=== PATIENT | female | born 1960 | race Two or more races ===

== ENCOUNTER 2021-05-23 10:47 | Emergency (ER) | payer MEDICAID, OTHER ==
[~2021-05-23] VITALS: Ht 165.1 cm; Wt 74.8 kg
[2021-05-23 10:53] VITALS: BP 122/64
== END 2021-05-23 12:22 | disposition home or self-care (01) ==
LOC: ER 10:47
DX: S93.402A Sprain of unspecified ligament of left ankle, initial encounter (principal); Z88.0 Allergy status to penicillin; W18.39XA Other fall on same level, initial encounter; Y93.89 Activity, other specified; Y92.89 Other specified places as the place of occurrence of the external cause; Y99.8 Other external cause status
CPT/HCPCS: 73610

== ENCOUNTER 2022-01-17 21:00 | Emergency (ER) | payer MEDICAID ==
[~2022-01-17] VITALS: Ht 165.1 cm; Wt 77.1 kg
[2022-01-17] MEDS ORDERED: ceFAZolin 1GM/50ML 50 ML IV ONE (21:30)
[2022-01-17] MEDS ORDERED: TETANUS-DIPTH-ACEL PERTUSSIS 0.5ML SYR Tdap IM ONE (21:30)
[2022-01-17] MEDS ORDERED: SODIUM CHLORIDE 0.9% 1,000 ML IV ONE (21:30)
[2022-01-17] MEDS ORDERED: HYDROmorphone HCL 2 MG/ML VL/or syr IV ONE (21:30)
[2022-01-17] MEDS ORDERED: IOHEXOL 350 MG/ML 100ML IJ ONE (21:34)
[2022-01-17] MEDS ORDERED: LORazepam 2MG/ML-1ML VIAL IV ONE (22:30)
[2022-01-17] MEDS ORDERED: diphenhdrAMINE HCL 50 MG/1 ML VL IV ONE (22:30)
[2022-01-17] MEDS ORDERED: HALOPERIDOL LACTATE 5 MG/ML INJ VIAL IM ONE (22:30)
[2022-01-17 22:34] LABS: Basophils # (auto) 0.1 10 ^3/uL (0-0.2); Basophils % (auto) 0.6 % (0.0-2.0); Eosinophils # (auto) 0.2 10 ^3/uL (0-0.8); Hematocrit 38.5 % (36.0-46.0); Hemoglobin 13.2 g/dL (12.2-16.2); Lymphocytes % (auto) 16.5 % (10.0-50.0); Mean Corpuscular Hemoglobin 29.4 pg (28.0-32.0); Mean Corpuscular Hgb Conc. 34.2 g/dL (32.0-36.0); Mean Corpuscular Volume 85.8 fL (80.0-100.0); Monocytes # (auto) 0.6 10 ^3/uL (0-1.3); Monocytes % (auto) 5.4 % (0.0-12.0); Neutrophils # (auto) 9.1 10 ^3/uL (1.6-8.6); Neutrophils % (auto) 75.5 % (37.0-80.0); Nucleated Red Blood Cells % 0.2 %; Red Blood Cells 4.49 10^6/uL (4.0-5.20); Red Cell Distribution Width 13.4 % (11.8-14.3); White Blood Cell 12.1 10^3/uL (4.4-10.8)
[2022-01-17 22:50] LABS: INR 0.99 (0.9-1.15); Partial Thromboplastin Time 27.3 sec (23.6-33.0)
[2022-01-17 22:51] LABS: Albumin 3.3 g/dL (3.4-5.0); Anion Gap 7 (5-15); BUN/Creatinine Ratio 9.2; Blood Alcohol < 3.0 mg/dL (0-5); Blood Urea Nitrogen 12 mg/dL (7-18); Calcium 8.4 mg/dL (8.5-10.1); Carbon Dioxide 29 mmol/L (21-32); Chloride 102 mmol/L (98-107); GFR African American 54 mL/min; GFR Non-African American 44 mL/min; Glucose 128 mg/dL (74-106); Potassium 3.9 mmol/L (3.5-5.1); Sodium 138 mmol/L (136-145)
[2022-01-17 22:55] LABS: Alanine Aminotransferase 31 U/L (13-56); Alkaline Phosphatase 117 U/L (45-117); Aspartate Aminotransferase 25 U/L (15-37); Bilirubin, Total 0.2 mg/dL (0.2-1.0); Total Protein 6.8 g/dL (6.4-8.2)
[2022-01-17 22:56] LABS: Lactic Acid w/Reflex 2.1 mmol/L (0.4-2.0)
[2022-01-17] MEDS ORDERED: PROPOFOL 10 MG/ML 20 ML IV ONE (23:45)
[2022-01-17] MEDS ORDERED: PROPOFOL 100 ML IV ONE (23:58)
[2022-01-18 01:47] LABS: Urine Bacteria NONE SEEN /hpf (None Seen); Urine Blood 1+ /uL (Negative); Urine Specific Gravity > 1.050 (1.001-1.035); Urine WBC 1 /hpf (0 - 5)
[2022-01-18 01:53] LABS: Alcohol, Urine < 3.0 mg/dL (0-10); Amphetamine Screen, Urine POSITIVE (NEGATIVE); Benzodiazephine Screen, Urine NEGATIVE (NEGATIVE); Cannabinoid Screen, Urine NEGATIVE (NEGATIVE); Cocaine Screen, Urine NEGATIVE (NEGATIVE); Opiate Scree,Urine NEGATIVE (NEGATIVE); Phencyclidine Screen, Urine NEGATIVE (NEGATIVE)
[2022-01-18 02:01] LABS: Barbiturate Scree,Urine NEGATIVE (NEGATIVE)
[2022-01-18 03:05] VITALS: BP 134/81
== END 2022-01-18 03:14 | disposition home or self-care (01) ==
LOC: ER 21:00 → EDBD 21:00 → ER 01-18 03:14
DX: S43.005A Unspecified dislocation of left shoulder joint, initial encounter (principal); S42.92XA Fracture of left shoulder girdle, part unspecified, initial encounter for closed fracture; S01.81XA Laceration without foreign body of other part of head, initial encounter; Z88.0 Allergy status to penicillin; Z20.822 Contact with and (suspected) exposure to COVID-19; W19.XXXA Unspecified fall, initial encounter; Y93.89 Activity, other specified; Y92.89 Other specified places as the place of occurrence of the external cause; Y99.8 Other external cause status
CPT/HCPCS: 12015; 23650; 36415; 70450; 71260; 72125; 73020; 73030; 73060; 73080; 73110; 74177; 80053; 80307; 80320; 81001; 83605; 84484; 85025; 85610; 85730; 86850; 86900; 86901; 87426; 87804; 90471; 90715; 93005; 96365; 96375; 99152; 99285; J0690; J1170; J1200; J2001; J2060; J2704; Q9967

== ENCOUNTER 2022-10-03 12:02 | Emergency (ER) | payer MEDICAID, OTHER ==
[~2022-10-03] VITALS: Ht 165.1 cm; Wt 63.0 kg
[2022-10-03 12:17] VITALS: BP 121/67
[2022-10-03] MEDS ORDERED: SODIUM CHLORIDE 0.9% 1,000 ML IV ONE (12:30)
[2022-10-03 12:53] LABS: Basophils # (auto) 0 10 ^3/uL (0-0.2); Basophils % (auto) 0.5 % (0.0-2.0); Eosinophils # (auto) 0.3 10 ^3/uL (0-0.8); Eosinophils % (auto) 3.8 % (0.0-7.0); Hematocrit 48.4 % (36.0-46.0); Hemoglobin 16.1 g/dL (12.2-16.2); Lymphocytes # (auto) 2.2 10 ^3/uL (0.4-5.4); Lymphocytes % (auto) 25.2 % (10.0-50.0); Mean Corpuscular Hemoglobin 29.4 pg (28.0-32.0); Mean Corpuscular Hgb Conc. 33.4 g/dL (32.0-36.0); Mean Corpuscular Volume 88.2 fL (80.0-100.0); Monocytes # (auto) 0.7 10 ^3/uL (0-1.3); Monocytes % (auto) 8.2 % (0.0-12.0); Neutrophils # (auto) 5.5 10 ^3/uL (1.6-8.6); Neutrophils % (auto) 62.3 % (37.0-80.0); Nucleated Red Blood Cells % 0.1 %; Red Blood Cells 5.49 10^6/uL (4.0-5.20); Red Cell Distribution Width 13.6 % (11.8-14.3); White Blood Cell 8.8 10^3/uL (4.4-10.8)
[2022-10-03 14:20] LABS: Anion Gap 8 (5-15); Carbon Dioxide 26 mmol/L (21-32); Chloride 104 mmol/L (98-107); Potassium 4.6 mmol/L (3.5-5.1); Sodium 138 mmol/L (136-145)
[2022-10-03 14:21] LABS: Alanine Aminotransferase 29 U/L (13-56); Albumin 4.2 g/dL (3.4-5.0); Alkaline Phosphatase 131 U/L (45-117); Aspartate Aminotransferase 28 U/L (15-37); BUN/Creatinine Ratio 11.6; Bilirubin, Total 0.4 mg/dL (0.2-1.0); Blood Urea Nitrogen 11 mg/dL (7-18); Calcium 9.5 mg/dL (8.5-10.1); GFR African American 77 mL/min; GFR Non-African American 64 mL/min; Glucose 91 mg/dL (74-106); Total Protein 8.1 g/dL (6.4-8.2)
[2022-10-03 14:30] LABS: Lipase 75 U/L (73-393); Magnesium 2.2 mg/dL (1.6-2.6)
== END 2022-10-03 13:15 | disposition left against medical advice (07) ==
LOC: EDBD 12:02 → ER 12:02
DX: R07.89 Other chest pain (principal); S93.402D Sprain of unspecified ligament of left ankle, subsequent encounter; F31.9 Bipolar disorder, unspecified; F41.9 Anxiety disorder, unspecified; F17.210 Nicotine dependence, cigarettes, uncomplicated; I10 Essential (primary) hypertension; F15.10 Other stimulant abuse, uncomplicated; Z98.51 Tubal ligation status; Z88.0 Allergy status to penicillin; X58.XXXD Exposure to other specified factors, subsequent encounter
CPT/HCPCS: 36415; 80053; 83690; 83735; 84484; 85025; 93005

== ENCOUNTER → 2023-11-04 | Outpatient (CLI) | payer OTHER, MEDICARE ==
[2023-11-04 15:16] LABS: Alanine Aminotransferase 13 U/L (7-40); Albumin 4.4 g/dL (3.2-4.8); Alkaline Phosphatase 128 U/L (46-116); Anion Gap 3 (5-15); Aspartate Aminotransferase 19 U/L (13-40); BUN/Creatinine Ratio 14.3 (10.0-20.0); Blood Urea Nitrogen 11 mg/dL (9-23); Calcium 9.9 mg/dL (8.5-10.1); Carbon Dioxide 30 mmol/L (20-30); Chloride 106 mmol/L (98-107); Cholesterol 194 mg/dL (< 200); Glucose 93 mg/dL (74-106); HDL Cholesterol 44 mg/dL (40-59); LDL Cholesterol 129 mg/dL (< 100); Sodium 139 mmol/L (136-145); Triglycerides 122 mg/dL (< 150)
[2023-11-04 15:17] LABS: Bilirubin, Total 0.3 mg/dL (0.2-1.0); Total Protein 7.3 g/dL (5.7-8.2)
== END | disposition home or self-care (01) ==
LOC: LAB 14:33
PROVIDERS: ATTEND Student in an Organized Health Care Education/Training Program
DX: R73.9 Hyperglycemia, unspecified (principal); R03.0 Elevated blood-pressure reading, without diagnosis of hypertension; F41.9 Anxiety disorder, unspecified
CPT/HCPCS: 36415; 80053; 80061; 83036; 84443

== ENCOUNTER 2024-01-08 10:55 | Emergency (ER) | payer MEDICARE, OTHER ==
[~2024-01-08] VITALS: Ht 165.1 cm; Wt 57.6 kg
[2024-01-08 11:11] VITALS: BP 133/75; RESP 15; O2SAT 100
[2024-01-08 11:25] VITALS: PULSE 82
[2024-01-08] MEDS: GABAPENTIN 300 MG CAP PO ONE (11:44)
[2024-01-08 11:59] LABS: Basophils # (auto) 0 10 ^3/uL (0-0.2); Basophils % (auto) 0.6 % (0.0-2.0); Eosinophils # (auto) 0.2 10 ^3/uL (0-0.8); Eosinophils % (auto) 3.2 % (0.0-7.0); Hematocrit 41.1 % (36.0-46.0); Hemoglobin 13.6 g/dL (12.2-16.2); Lymphocytes # (auto) 1.4 10 ^3/uL (0.4-5.4); Lymphocytes % (auto) 19.6 % (10.0-50.0); Mean Corpuscular Hemoglobin 28.9 pg (28.0-32.0); Mean Corpuscular Hgb Conc. 33.2 g/dL (32.0-36.0); Mean Corpuscular Volume 87.2 fL (80.0-100.0); Monocytes # (auto) 0.6 10 ^3/uL (0-1.3); Monocytes % (auto) 7.5 % (0.0-12.0); Neutrophils # (auto) 5.1 10 ^3/uL (1.6-8.6); Neutrophils % (auto) 69.1 % (37.0-80.0); Red Blood Cells 4.71 10^6/uL (4.0-5.20); Red Cell Distribution Width 13.6 % (11.8-14.3); White Blood Cell 7.4 10^3/uL (4.4-10.8)
[2024-01-08 12:10] LABS: Alanine Aminotransferase 11 U/L (7-40); Albumin 4.3 g/dL (3.2-4.8); Alkaline Phosphatase 112 U/L (46-116); Anion Gap 5 (5-15); Aspartate Aminotransferase 15 U/L (13-40); Blood Urea Nitrogen 12 mg/dL (9-23); Calcium 10.3 mg/dL (8.7-10.4); Carbon Dioxide 29 mmol/L (20-30); Chloride 104 mmol/L (98-107); Glucose 86 mg/dL (74-106); Potassium 4.6 mmol/L (3.5-5.1); Sodium 138 mmol/L (136-145)
[2024-01-08 12:11] LABS: Bilirubin, Total 0.3 mg/dL (0.2-1.0); Total Protein 7.3 g/dL (5.7-8.2)
[2024-01-08] MEDS ORDERED: GABA-1250 PO (13:36)
== END 2024-01-08 14:34 | disposition left against medical advice (07) ==
LOC: ER 10:55
DX: G62.9 Polyneuropathy, unspecified (principal); F41.9 Anxiety disorder, unspecified; F32.9 Major depressive disorder, single episode, unspecified; Z98.890 Other specified postprocedural states; Z88.0 Allergy status to penicillin
CPT/HCPCS: 36415; 72040; 80053; 85025; 93005

== ENCOUNTER → 2024-03-12 | Outpatient (CLI) | payer OTHER ==
[~2024-03-12] MED LIST: GABA-1250 PO
== END | disposition home or self-care (01) ==
LOC: XYW 09:44
PROVIDERS: ATTEND Student in an Organized Health Care Education/Training Program
DX: R60.0 Localized edema (principal); I51.89 Other ill-defined heart diseases
CPT/HCPCS: 93306

== ENCOUNTER 2024-05-10 15:55 | Emergency (ER) | payer OTHER ==
[~2024-05-10] VITALS: Ht 165.1 cm; Wt 62.4 kg
[2024-05-10 16:47] VITALS: BP 96/54; PULSE 63; RESP 20; O2SAT 96
== END 2024-05-10 20:08 | disposition left against medical advice (07) ==
LOC: ER 15:55
DX: Z04.1 Encounter for examination and observation following transport accident (principal); Z53.21 Procedure and treatment not carried out due to patient leaving prior to being seen by health care provider

== ENCOUNTER → 2025-03-20 | Outpatient (CLI) | payer OTHER | END | disposition home or self-care (01) | LOC: LAB 12:54 | PROVIDERS: ATTEND Student in an Organized Health Care Education/Training Program | DX: Z12.11 Encounter for screening for malignant neoplasm of colon (principal) | CPT/HCPCS: 82270 ==

== ENCOUNTER 2025-05-29 16:42 | Inpatient (IN) | payer OTHER ==
[~2025-05-29] VITALS: Ht 167.6 cm; Wt 68.5 kg
--- NOTE | 2025-05-29 17:06 | ECG ---
[facility] Test Date: 2025-05-29 Test Time: 16:46:06 Pat Name: EDVIN SON Department: [facility] ED Patient ID: [facility]-[id number] Room: [address] [place] [address] Gender: F Dietary Worker: joe : 1960 Requested By: EMERGENCY EMERGENCY Order Number: [id number] Reading MD: Kenny Heller Measurements Intervals Eleanor Rate: 89 P: 54 FL: 138 QRS: -74 QRSD: 141 T: 54 QT: 435 QTc: 530 Interpretive Statements Sinus rhythm Consider right atrial enlargement RBBB and LAFB Baseline wander in lead(s) V2 Electronically Signed On 05-30-2025 17:02:59 PDT by Kenny Heller Please click the below link to view image of tracing.
--- NOTE | 2025-05-29 18:13 | ED.PDOC ---
History of Present Illness HPI Comments 64-year-old female with a history of schizophrenia and bipolar disorder and methamphetamine abuse now comes from home after her caregiver stopped by and noticed that she was confused. Patient apparently is normally a and O x4 at baseline but now today is A&O x2. Patient denies pain complaints. Patient denies cough or fever or throwing up or diarrhea Chief Complaint: ALOC Time Seen by MD: 17:54 Primary Care Provider: UNK Allergies: Coded Allergies: Penicillins (Verified Allergy, Unknown, 01/17/22) Home Meds Active Scripts Gabapentin (Gabapentin) 300 Mg Cap, 1 CAP PO Q4HP PRN, #30 CAP 0 Refills Prov:CHARANJIT ALICEA Brigitte PAC 01/08/24 Mode of Arrival: EMS Severity: Moderate Timing: Days Duration: Since onset Past Medical History PAST MEDICAL HISTORY: Anxiety, Depression, Schizophrenia Surgical History: Tubal Ligation [employer] History: Denies all [employer] Hx Family History Family History: Reviewed,noncontributory to illness Social History Smoker: Non-Smoker Alcohol: Denies ETOH Use Drugs: Denies Drug Use, Methamphetamine Lives In: Home Constitutional: reports: fatigue Psychiatric: reports: anxiety, bipolar disorder, schizophrenia Unable to Obtain due to: Altered Mental Status Physical Exam General Appearance: Mild Distress HEENT: Normal ENT Inspection, Pharynx Normal, TMs Normal Neck: Full Range of Motion, Non-Tender, Normal, Normal Inspection Respiratory: Chest Non-Tender, Lungs Clear, No Accessory Muscle Use, No Respiratory Distress, Normal Breath Sounds Cardiovascular: No Edema, No JVD, No Murmur, No Gallop, Normal Peripheral Pulses, Regular Rate/Rhythm Breast Exam: Deferred Gastrointestinal: No Organomegaly, Non Tender, No Pulsatile Mass, Normal Bowel Sounds, Soft Genitalia: Deferred Pelvic: Deferred Rectal: Deferred Extremities: No calf tenderness, Normal capillary refill, Normal inspection, Normal range of motion, Non-tender, No pedal edema Musculoskeletal : Apperance: Normal Neurologic: Other (Awake, alert, answers basic questions appropriately, disoriented to time ) Cerebellar Function: Normal Reflexes: Normal Skin: Dry, Normal Color, Warm Lymphatic: No Adenopathy Was a procedure done? Was a procedure done?: No Differential Dx Considerations may include: Differential diagnosis includes but not limited to: Sepsis, stroke, intracranial hemorrhage, drug overdose, dehydration, encephalitis, and others X-Ray, Labs, Meds, VS Vital Signs Date Time Temp Pulse Resp B/P (MAP) Pulse Ox O2 Delivery O2 Flow Rate FiO2 05/29/25 20:53 98.3 78 16 100/70 (80) 95 98.3 05/29/25 19:00 79 20 112/73 (86) 100 05/29/25 17:01 97 22 78/44 (55) 96 05/29/25 16:54 99 Nasal Cannula* 2 28 05/29/25 16:48 98.5 92 18 94/67 99 98.5 05/29/25 16:46 89 Lab Test 05/29/25 18:16 Range/Units White Blood Count 11.6 H 4.4-10.8 10^3/uL Red Blood Count 4.55 4.0-5.20 10^6/uL Hemoglobin 14.0 12.2-16.2 g/dL Hematocrit 40.4 36.0-46.0 % Mean Corpuscular Volume 88.8 80.0-100.0 fL Mean Corpuscular Hemoglobin 30.7 28.0-32.0 pg Mean Corpuscular Hemoglobin Concent 34.6 32.0-36.0 g/dL Red Cell Distribution Width 13.3 11.8-14.3 % Platelet Count 165 140-450 10^3/uL Mean Platelet Volume 8.6 6.9-10.8 fL Neutrophils (%) (Auto) 78.7 37.0-80.0 % Lymphocytes (%) (Auto) 10.2 10.0-50.0 % Monocytes (%) (Auto) 10.5 0.0-12.0 % Eosinophils (%) (Auto) 0.2 0.0-7.0 % Basophils (%) (Auto) 0.4 0.0-2.0 % Neutrophils # (Auto) 9.1 H 1.6-8.6 10 ^3/uL Lymphocytes # (Auto) 1.2 0.4-5.4 10 ^3/uL Monocytes # (Auto) 1.2 0-1.3 10 ^3/uL Eosinophils # (Auto) 0 0-0.8 10 ^3/uL Basophils # (Auto) 0 0-0.2 10 ^3/uL Nucleated Red Blood Cells 0.1 % Sodium Level 136 136-145 mmol/L Potassium Level 3.2 L 3.5-5.1 mmol/L Chloride Level 98 98-107 mmol/L Carbon Dioxide Level 29 20-31 mmol/L Anion Gap 9 5-15 Blood Urea Nitrogen 16 9-23 mg/dL Creatinine 1.14 H 0.550-1.02 mg/dL Glomerular Filtration Rate Calc 54 >90 mL/min BUN/Creatinine Ratio 14.0 10.0-20.0 Serum Glucose 137 H 74-106 mg/dL Lactic Acid Level 1.6 0.4-2.0 mmol/L Calcium Level 9.2 8.7-10.4 mg/dL Magnesium Level 2.1 1.6-2.6 mg/dL Total Bilirubin 0.5 0.2-1.0 mg/dL Aspartate Amino Transferase (AST) 44 H 13-40 U/L Alanine Aminotransferase (ALT) 12 7-40 U/L Alkaline Phosphatase 88 46-116 U/L Ammonia < 10 L 11-32 umol/L Total Protein 7.0 5.7-8.2 g/dL Albumin 3.8 3.2-4.8 g/dL Salicylates Level < 3.0 -30 mg/dL Acetaminophen Level < 2.0 L 10.0-20.0 UG/ML Plasma/Serum Blood Alcohol < 3.0 <10 mg/dL Current Medications Medications (Trade) Dose Ordered Sig/Jakob Route Start Time Stop Time Status Last Admin Sodium Chloride 1,000 ml @ 1,000 mls/hr Q1H ONCE IVB 05/29/25 18:15 05/29/25 19:14 DC 05/29/25 18:15 Lorazepam (Ativan Inj) 1 mg ONCE ONCE IV 05/29/25 18:15 05/29/25 18:16 DC 05/29/25 18:15 Diphenhydramine HCl (Benadryl Injection) 25 mg ONCE ONCE IV 05/29/25 18:15 05/29/25 18:16 DC 05/29/25 18:15 Images Reviewed?: Images reviewed and evaluated by me Time of 1ST Reevaluation: 18:11 Reevaluation 1ST: Unchanged Patient Education/Counseling: Diagnosis, Treatment Family Education/Counseling: No Family Present SEPSIS Sepsis Screen Date sepsis recognized/suspect: May 29, 2025 Time Sepsis recognized/suspect: 1650 Recent Procedure: No On Antibiotic Therapy: No Respiratory Rate >20: No Heart Rate >90: No Temp<36 C (96.8 F) or >38.3 C: No SBP <90 or MAP <65 mmHG: No New Acute Mental Status Change: No Is the patient on CPAP, BIPAP,: No Physician Orders Urinalysis (05/29/25 18:03) Blood Culture (05/29/25 18:03) Drug Screen (05/29/25 18:03) Chest Portable (05/29/25 18:03) Head Without Contrast (05/29/25 18:03) Vital Signs Date Time Temp Pulse Resp B/P (MAP) Pulse Ox O2 Delivery O2 Flow Rate FiO2 05/29/25 20:53 98.3 78 16 100/70 (80) 95 98.3 05/29/25 19:00 79 20 112/73 (86) 100 05/29/25 17:01 97 22 78/44 (55) 96 05/29/25 16:54 99 Nasal Cannula* 2 28 05/29/25 16:48 98.5 92 18 94/67 99 98.5 05/29/25 16:46 89 Laboratory Tests Test 05/29/25 18:16 Lactic Acid Level 1.6 mmol/L (0.4-2.0) White Blood Count 11.6 10^3/uL (4.4-10.8) H Medications Medications Dose Ordered Sig/Jakob Route Start Time Stop Time Status Last Admin Dose Admin Diphenhydramine HCl 25 mg ONCE ONCE IV 05/29/25 18:15 05/29/25 18:16 DC 05/29/25 18:15 Lorazepam 1 mg ONCE ONCE IV 05/29/25 18:15 05/29/25 18:16 DC 05/29/25 18:15 Sodium Chloride 1,000 ml @ 1,000 mls/hr Q1H ONCE IVB 05/29/25 18:15 05/29/25 19:14 DC 05/29/25 18:15 Departure 1 Departure Time of Disposition: 22:33 Impression: Primary Impression: Acute metabolic encephalopathy Additional Impressions: Hypotension Acute renal injury Hypokalemia Disposition: ADMITTED INPATIENT Admit to: Med Surg Condition: Guarded Discharged With: Self Comments 64-year-old female with some confusion and decreased mental status. Her lab results suggest acute renal injury with creatinine elevated 1.14. Mild hypokale horace 3.2. White blood cell count mildly elevated 111.6. CT of the head shows some atrophy. Patient was given IV fluids and. Potassium supplementation. Patient will need to be admitted for metabolic encephalopathy, acute renal injury, dehydration, hypokalemia Critical Care Note Critical Care Time?: Yes (35 min-critical care time only) Critical care comment: Total critical care time: Approximately 36 minutes Due to a high probability of clinically significant, life threatening deterioration, the patient required my highest level of preparedness to intervene emergently and I personally spent this critical care time directly and personally managing the patient. This critical care time included obtaining a history; examining the patient; pulse oximetry; ordering and review of studies; arranging urgent treatment with development of a management plan; evaluation of patient's response to treatment; frequent reassessment; and, discussions with other providers. This critical care time was performed to assess and manage the high probability of imminent, life-threatening deterioration that could result in multi-organ failure. It was exclusive of separately billable procedures and treating other patients. Stability Stability form required: No Heart Score Heart Score: Heart Score Response (Comments) Value History N/A 0 EKG N/A 0 Age N/A 0 Risk Factors N/A 0 Troponin N/A 0 Total 0 KENAN CROSS MD May 29, 2025 18:13
[2025-05-29] MEDS: diphenhdrAMINE HCL 50 MG/1 ML VL IV ONE (18:15)
[2025-05-29] MEDS: SODIUM CHLORIDE 0.9% 1,000 ML IVB ONE (18:15)
[2025-05-29] MEDS: LORazepam 2MG/ML-1ML VIAL IV ONE (18:15)
[2025-05-29 18:34] LABS: Hematocrit 40.4 % (36.0-46.0); Hemoglobin 14.0 g/dL (12.2-16.2); Mean Corpuscular Hemoglobin 30.7 pg (28.0-32.0); Mean Corpuscular Volume 88.8 fL (80.0-100.0); Nucleated Red Blood Cells % 0.1 %
[2025-05-29 18:46] LABS: Acetaminophen < 2.0 UG/ML (10.0-20.0); Salicylate < 3.0 mg/dL (-30)
[2025-05-29 18:58] LABS: Alanine Aminotransferase 12 U/L (7-40); Albumin 3.8 g/dL (3.2-4.8); Alkaline Phosphatase 88 U/L (46-116); Anion Gap 9 (5-15); BUN/Creatinine Ratio 14.0 (10.0-20.0); Bilirubin, Total 0.5 mg/dL (0.2-1.0); Blood Urea Nitrogen 16 mg/dL (9-23); Calcium 9.2 mg/dL (8.7-10.4); Carbon Dioxide 29 mmol/L (20-31); Magnesium 2.1 mg/dL (1.6-2.6); Total Protein 7.0 g/dL (5.7-8.2)
[2025-05-29 19:04] LABS: Chloride 98 mmol/L (98-107); Glucose 137 mg/dL (74-106); Potassium 3.2 mmol/L (3.5-5.1); Sodium 136 mmol/L (136-145)
--- NOTE | 2025-05-29 19:28 | DVH ---
CLINICAL HISTORY: SOB TECHNIQUE: Single view of the chest was obtained. COMPARISON: None FINDINGS: The heart size is mildly enlarged and The pulmonary vasculature appears normal. The lungs are clear. IMPRESSION: NO ACUTE CARDIOPULMONARY PROCESS.
--- NOTE | 2025-05-29 22:18 | DVH ---
EXAM: CT HEAD WITHOUT CONTRAST INDICATION: ALOC TECHNIQUE: CT of the head without intravenous contrast. Radiation Dose Information: CT Dose: CTDI volume is 62.79 mGy. Dose-length product is 1237.18 mGy*cm The dose indicators for CT are the volume Computed Tomography (CT) Dose Index (CTDIvol) and the Dose Length Product (DLP), and are measured in units of mGy and mGy-cm, respectively. These indicators are not patient dose, but values generated from the CT scanner acquisition factors. The report includes radiation exposure data for exposures received during this examination. COMPARISON: CT HEAD WITHOUT CONTRAST on DOS: 02/08/24, HEAD WITHOUT CONTRAST on DOS: 01/17/22 FINDINGS: There is no evidence of acute intracranial hemorrhage, extra-axial collection, mass effect, midline s hift, herniation or hydrocephalus. Bilateral basal ganglion calcifications. Slightly larger lateral ventricles bilaterally when compared to 2021. The ventricles, sulci and cisterns are age appropriate. The sousa-white differentiation is intact. Patchy periventricular and subcortical white matter hypoattenuation is nonspecific but may be related to small vessel ischemic disease. The visualized paranasal sinuses and mastoid air cells are clear. The surrounding soft tissues and osseous structures are unremarkable. IMPRESSION: 1. No acute intracranial hemorrhage 2. No CT findings of territorial ischemia. 3. Stable idiopathic bilateral basal ganglion calcification. 4. Stable mildly prominent lateral ventricles and 3rd ventricle. Unchanged from 01/17/2022. 5. Lateral ventricles appear slightly larger on 01/17/2022.
[2025-05-29] MEDS: POTASSIUM CHL 20 Meq TABLET PO ONE (22:51)
[2025-05-30] MEDS ORDERED: ONDANSETRON HCL 4 MG/2 ML VIAL IV PRN (07:15)
[2025-05-30] MEDS ORDERED: MIRA25TA PO (07:17)
--- NOTE | 2025-05-30 07:18 | DVHHP2 ---
History of Present Illness Reason for Visit: ALOC History of Present Illness Irma Abbott is a 64-year-old female with past medical history of anxiety, depression, schizophrenia, and tubal ligation who presents to the ED with confusion after her caregiver found her at her home confused. Patient reports that she lives alone in her trailer. She also states that her caregiver Elena comes by and a checks on her often. Patient denies history of drug abuse, tobacco use, or drinking. Patient denies any recent travels, recent ingestion of spoiled food, recent sick contacts, chest pain, shortness of breath, fever, chills, lightheadedness, weakness, dizziness, abdominal pain, nausea, vomiting, diarrhea, or urinary symptoms. Patient reports that she fell last week but does not recall where she fell. She does state that she has no pain anywhere. Upon examination patient reeks of urine and is unkept. Psych: Anxiety, Depression, Schizophrenia Past Surgical History: Tubal Ligation Smoke: No ALCOHOL: none Drugs: None Lives: Alone Domestic Violence: Neg Review of Systems Neurological: Confusion Allergies: Coded Allergies: Penicillins (Verified Allergy, Unknown, 01/17/22) Exam Vital Signs Vital Signs Date Time Temp Pulse Resp B/P (MAP) Pulse Ox O2 Delivery O2 Flow Rate FiO2 05/30/25 06:00 97.7 62 12 94/44 (61) 97 97.7 05/29/25 23:18 Room Air* 0 21 General Appearance: Alert, Oriented X3, Cooperative, No acute distress HEENT: Atraumatic Respiratory: Normal air movement Cardiovascular: Normal S1, Normal S2 Abdominal: Normal bowel sounds, Soft Extremities: No cyanosis, No edema Neuro: Normal speech, Normal tone, Sensation intact Psych/Mental Status: Mental status NL Labs/Xrays Labs Test 05/29/25 18:16 Range/Units White Blood Count 11.6 H 4.4-10.8 10^3/uL Red Blood Count 4.55 4.0-5.20 10^6/uL Hemoglobin 14.0 12.2-16.2 g/dL Hematocrit 40.4 36.0-46.0 % Mean Corpuscular Volume 88.8 80.0-100.0 fL Mean Corpuscular Hemoglobin 30.7 28.0-32.0 pg Mean Corpuscular Hemoglobin Concent 34.6 32.0-36.0 g/dL Red Cell Distribution Width 13.3 11.8-14.3 % Platelet Count 165 140-450 10^3/uL Mean Platelet Volume 8.6 6.9-10.8 fL Neutrophils (%) (Auto) 78.7 37.0-80.0 % Lymphocytes (%) (Auto) 10.2 10.0-50.0 % Monocytes (%) (Auto) 10.5 0.0-12.0 % Eosinophils (%) (Auto) 0.2 0.0-7.0 % Basophils (%) (Auto) 0.4 0.0-2.0 % Neutrophils # (Auto) 9.1 H 1.6-8.6 10 ^3/uL Lymphocytes # (Auto) 1.2 0.4-5.4 10 ^3/uL Monocytes # (Auto) 1.2 0-1.3 10 ^3/uL Eosinophils # (Auto) 0 0-0.8 10 ^3/uL Basophils # (Auto) 0 0-0.2 10 ^3/uL Nucleated Red Blood Cells 0.1 % Sodium Level 136 136-145 mmol/L Potassium Level 3.2 L 3.5-5.1 mmol/L Chloride Level 98 98-107 mmol/L Carbon Dioxide Level 29 20-31 mmol/L Anion Gap 9 5-15 Blood Urea Nitrogen 16 9-23 mg/dL Creatinine 1.14 H 0.550-1.02 mg/dL Glomerular Filtration Rate Calc 54 >90 mL/min BUN/Creatinine Ratio 14.0 10.0-20.0 Serum Glucose 137 H 74-106 mg/dL Lactic Acid Level 1.6 0.4-2.0 mmol/L Calcium Level 9.2 8.7-10.4 mg/dL Magnesium Level 2.1 1.6-2.6 mg/dL Total Bilirubin 0.5 0.2-1.0 mg/dL Aspartate Amino Transferase (AST) 44 H 13-40 U/L Alanine Aminotransferase (ALT) 12 7-40 U/L Alkaline Phosphatase 88 46-116 U/L Ammonia < 10 L 11-32 umol/L Total Protein 7.0 5.7-8.2 g/dL Albumin 3.8 3.2-4.8 g/dL Salicylates Level < 3.0 -30 mg/dL Acetaminophen Level < 2.0 L 10.0-20.0 UG/ML Plasma/Serum Blood Alcohol < 3.0 <10 mg/dL EXAM: CT HEAD WITHOUT CONTRAST INDICATION: ALOC TECHNIQUE: CT of the head without intravenous contrast. Radiation Dose Information: CT Dose: CTDI volume is 62.79 mGy. Dose-length product is 1237.18 mGy*cm The dose indicators for CT are the volume Computed Tomography (CT) Dose Index (CTDIvol) and the Dose Length Product (DLP), and are measured in units of mGy and mGy-cm, respectively. These indicators are not patient dose, but values generated from the CT scanner acquisition factors. The report includes radiation exposure data for exposures received during this examination. COMPARISON: CT HEAD WITHOUT CONTRAST on DOS: 02/08/24, HEAD WITHOUT CONTRAST on DOS: 01/17/22 FINDINGS: There is no evidence of acute intracranial hemorrhage, extra-axial collection, mass effect, midline shift, herniation or hydrocephalus. Bilateral basal ganglion calcifications. Slightly larger lateral ventricles bilaterally when compared to 2021. The ventricles, sulci and cisterns are age appropriate. The sousa-white differentiation is intact. Patchy periventricular and subcortical white matter hypoattenuation is no nspecific but may be related to small vessel ischemic disease. The visualized paranasal sinuses and mastoid air cells are clear. The surrounding soft tissues and osseous structures are unremarkable. IMPRESSION: 1. No acute intracranial hemorrhage 2. No CT findings of territorial ischemia. 3. Stable idiopathic bilateral basal ganglion calcification. 4. Stable mildly prominent lateral ventricles and 3rd ventricle. Unchanged from 01/17/2022. 5. Lateral ventricles appear slightly larger on 01/17/2022. CLINICAL HISTORY: SOB TECHNIQUE: Single view of the chest was obtained. COMPARISON: None FINDINGS: The heart size is mildly enlarged and The pulmonary vasculature appears normal. The lungs are clear. IMPRESSION: NO ACUTE CARDIOPULMONARY PROCESS. SEPSIS Sepsis Screen Date sepsis recognized/suspect: May 29, 2025 Time Sepsis recognized/suspect: 2317 Recent Procedure: No On Antibiotic Therapy: No Respiratory Rate >20: No Heart Rate >90: No Temp<36 C (96.8 F) or >38.3 C: No SBP <90 or MAP <65 mmHG: No New Acute Mental Status Change: Yes Is the patient on CPAP, BIPAP,: No Vital Signs Date Time Temp Pulse Resp B/P (MAP) Pulse Ox O2 Delivery O2 Flow Rate FiO2 05/30/25 06:00 97.7 62 12 94/44 (61) 97 97.7 05/30/25 04:00 97.5 69 13 102/75 (84) 97 97.5 05/30/25 03:00 97.5 82 16 105/66 (79) 97 97.5 05/30/25 01:00 97.7 75 18 98/62 (74) 97 97.7 05/29/25 23:18 Room Air* 0 21 05/29/25 23:18 97.7 76 18 113/78 (90) 100 97.7 Medications Medications Dose Ordered Sig/Jakob Route Start Time Stop Time Status Last Admin Dose Admin Potassium Chloride 20 meq ONCE ONCE PO 05/29/25 22:45 05/29/25 22:46 DC 05/29/25 22:51 20 MEQ Assessment/Plan Assessment/Plan Assessment Acute metabolic encephalopathy Failure to thrive Leukocytosis unclear etiology Hypokalemia PARTH likely due to ATN Meth use History of anxiety History of depression History of schizophrenia History of tubal ligation Patient endorses history of fall last week Plan Admit to [facility] IV antibiotics-ceftriaxone Antiemetics Pain management UA Replete lytes Antihistamines Anxiolytics NS 1 L given in ED Ammonia level CT head noted Blood alcohol Chest x-ray Salicylate Tylenol level UDS Lactic noted Blood cultures Mag level EKG TSH Vitamin B12 Vitamin-D level Diet Home medications reconciled DVT prophylaxis-SCDs PUD prophylaxis-not indicated no history of GERD or GI bleed Discussed plan of care with patient and nurse Social work-home safety eval Counseled patient on cessation of meth use [id number] Behavior change smoking greater than 10 minutes about use of other options also gave option of nicotine patch [id number] Preventive counseling healthy eating habits, physical activity, and regular checkups Plan discussed with: Patient Date of Service: May 30, 2025 Billing Provider: MARKIE YIP Common Visit Codes: [id number] INP/OBS CARE (HIGH) Secondary Visit Codes: [id number] COUNSELING IND, [id number] CHNG SMOKING >10MIN MARKIE YIP May 30, 2025 07:18
[2025-05-30 07:30] VITALS: PULSE 81; RESP 19; O2SAT 98
[2025-05-30 08:59] VITALS: BP 101/49; PULSE 71; RESP 16; TEMP 97.8; O2SAT 96
[2025-05-30] MEDS ORDERED: ESCI1TAB37 PO (09:18)
[2025-05-30] MEDS ORDERED: MIRABEGRON BASE 25 MG PO SCH (10:00)
--- NOTE | 2025-05-30 11:32 | DVH ---
Bilateral HIP RADIOGRAPH. CLINICAL INDICATION: s/p fall TECHNIQUE: 4 views of the bilateral hip were obtained. FINDINGS: There is no evidence of fracture, subluxation or dislocation. Moderate bilateral hip osteoa rthritis. The bony mineralization is normal.No radiopaque foreign body is identified. IMPRESSION: 1. No evidence of acute bony injury.
[2025-05-30] MEDS ORDERED: POTASSIUM CHL 10 Meq TABLET PO ONE (12:30)
[2025-05-30 13:00] VITALS: BP 104/67; PULSE 80; RESP 16; TEMP 98.3; O2SAT 97
[2025-05-30] MEDS: SODIUM CHLORIDE 0.9% 1,000 ML IV SCH (13:00)
[2025-05-30 17:00] VITALS: BP 124/74; PULSE 89; RESP 18; TEMP 98.6; O2SAT 95
[2025-05-30] MEDS: POTASSIUM CHL 10 Meq TABLET PO ONE (19:41)
[2025-05-30 21:00] VITALS: BP 100/64; PULSE 83; RESP 19; TEMP 98.3; O2SAT 97
[2025-05-30] MEDS: LORazepam 2MG/ML-1ML VIAL IV PRN (23:09)
[2025-05-31] VITALS (7 sets, daily range): BP systolic 92–118; BP diastolic 51–66; PULSE 76–88; RESP 16–21; TEMP 97.8–98.7; O2SAT 90–100
[2025-05-31 11:48] LABS: Hematocrit 37.0 % (36.0-46.0); Hemoglobin 12.7 g/dL (12.2-16.2); Mean Corpuscular Hemoglobin 31.0 pg (28.0-32.0); Mean Corpuscular Volume 90.6 fL (80.0-100.0); Nucleated Red Blood Cells % 0.1 %
[2025-05-31 11:57] LABS: Alanine Aminotransferase 14 U/L (7-40); Albumin 3.3 g/dL (3.2-4.8); Alkaline Phosphatase 77 U/L (46-116); Anion Gap 6 (5-15); BUN/Creatinine Ratio 22.2 (10.0-20.0); Blood Urea Nitrogen 16 mg/dL (9-23); Calcium 8.7 mg/dL (8.7-10.4); Chloride 100 mmol/L (98-107); Potassium 3.5 mmol/L (3.5-5.1); Sodium 138 mmol/L (136-145); Total Protein 5.7 g/dL (5.7-8.2)
[2025-05-31 12:15] LABS: Bilirubin, Total 0.2 mg/dL (0.2-1.0); Carbon Dioxide 32 mmol/L (20-31); Glucose 122 mg/dL (74-106)
--- NOTE | 2025-05-31 13:09 | DVHPN2 ---
Subjective Seen and examined at bedside, patient lives alone. Still need urine. Changes from previous H/P or p: No Changes Objective Vitals Vital Signs Date Time Temp Pulse Resp B/P (MAP) Pulse Ox O2 Delivery O2 Flow Rate FiO2 05/31/25 09:00 98.6 84 16 92/54 (67) 95 98.6 05/31/25 07:50 Nasal Cannula* 2 28 Intake/Output Intake and Output 05/31/25 06:59 Intake Total 0 ml Balance 0 ml Intake Oral 0 ml # Voids 3 General Appearance: Alert, Cooperative, No acute distress HEENT: Atraumatic Neck: Carotid Bruits [place] Lungs: Clear to auscultation Cardiovascular: Regular rate, Normal S1, Normal S2 Abdomen: Normal bowel sounds, Soft Psych/Mental Status: Mental status NL Medications Current Medications Medications Dose Ordered Sig/Jakob Route Start Time Stop Time Status Last Admin Dose Admin Sodium Chloride 1,000 ml @ 60 mls/hr [id number] IV 05/30/25 07:15 05/31/25 03:39 60 MLS/HR Ondansetron HCl 4 mg Q4HP PRN IV 05/30/25 07:15 Ceftriaxone Sodium 50 ml @ 100 mls/hr DAILY@09 IV 05/30/25 09:00 05/31/25 08:32 100 MLS/HR Lorazepam 1 mg Q4HPRN PRN IV 05/30/25 23:00 05/30/25 23:09 1 MG Laboratory Results Laboratory Tests 05/31/25 11:05 Chemistry Test 05/31/25 11:05 Albumin 3.3 g/dL (3.2-4.8) Calcium Level 8.7 mg/dL (8.7-10.4) Total Protein 5.7 g/dL (5.7-8.2) LFT Test 05/31/25 11:05 Alanine Aminotransferase (ALT) 14 U/L (7-40) Alkaline Phosphatase 77 U/L (46-116) Aspartate Amino Transferase (AST) 29 U/L (13-40) Total Bilirubin 0.2 mg/dL (0.2-1.0) Microbiology Microbiology Date/Time Source Procedure Growth Status 05/29/25 18:16 Blood Blood Culture - Preliminary Resulted Assessment/Plan Assessment/Plan Acute metabolic encephalopathy- improving Failure to thrive PARTH likely due to ATN- MOnitor DC Planning no family or NOK to contact Plan discussed with: Patient My Orders Orders - JORGE SANCHEZ MD Procedure Category Date Status Time Pureed DIET 05/30/25 Transmitted Dinner Straight Cath Patient ORDERS 05/31/25 Transmitted 13:02 Straight Cath Patient ORDERS 05/31/25 Transmitted 13:02 Date of Service: May 31, 2025 Billing Provider: JORGE SANCHEZ MD Common Visit Codes: [id number] INP/OBS CARE(HIGH) JORGE SANCHEZ MD May 31, 2025 13:09
[2025-05-31 14:01] LABS: Urine Protein, UAD Negative (Negative)
[2025-06-01 01:00] VITALS: BP 106/68; PULSE 78; RESP 19; TEMP 98.2; O2SAT 96
[2025-06-01 05:00] VITALS: BP 100/60; PULSE 67; RESP 20; TEMP 98.5; O2SAT 95
[2025-06-01 09:00] VITALS: BP 120/67; PULSE 64; RESP 18; TEMP 98.3; O2SAT 94
--- NOTE | 2025-06-01 11:26 | DVHPN2 ---
Reviewed: Care Plan, H&P, Labs, Medications, Previous Orders, Radiology Changes from previous H/P or p: No Changes Objective Vitals Vital Signs Date Time Temp Pulse Resp B/P (MAP) Pulse Ox O2 Delivery O2 Flow Rate FiO2 06/01/25 09:00 98.3 64 18 120/67 (84) 94 98.3 06/01/25 08:00 Nasal Cannula* 2 28 Intake/Output Intake and Output 06/01/25 07:00 Intake Total 1920 ml Balance 1920 ml Intake Oral 1870 ml IV Total 50 ml # Voids 10 General Appearance: Alert, Cooperative, No acute distress HEENT: Atraumatic Neck: Carotid Bruits [place] Lungs: Clear to auscultation Cardiovascular: Regular rate, Normal S1, Normal S2 Abdomen: Normal bowel sounds, Soft Psych/Mental Status: Mental status NL Medications Current Medications Medications Dose Ordered Sig/Jakob Route Start Time Stop Time Status Last Admin Dose Admin Sodium Chloride 1,000 ml @ 60 mls/hr [id number] IV 05/30/25 07:15 06/01/25 09:58 60 MLS/HR Ondansetron HCl 4 mg Q4HP PRN IV 05/30/25 07:15 Ceftriaxone Sodium 50 ml @ 100 mls/hr DAILY@09 IV 05/30/25 09:00 05/31/25 08:32 100 MLS/HR Lorazepam 1 mg Q4HPRN PRN IV 05/30/25 23:00 06/01/25 01:00 1 MG Laboratory Results Laboratory Tests 05/31/25 11:05 Urinalysis Test 05/30/25 13:15 Urine Color Light-yellow (Yellow) Urine Clarity Clear (Clear) Urine pH 6.5 (5.0-9.0) Urine Specific [place] 1.009 (1.001-1.035) Urine Protein Negative (Negative) Urine Ketones Negative (Negative) Urine Blood Trace /uL (Negative) H Urine Nitrite Negative (Negative) Urine Bilirubin Negative (Negative) Urine Urobilinogen Normal mg/dL (Negative) Urine Leukocyte Esterase 2+ /uL (Negative) Urine RBC 1 /hpf (0 - 4) Urine Microscopic WBC 9 /HPF (0-5) H Urine Squamous Epithelial Cells Few /hpf (<5) Urine Bacteria Few /hpf (None Seen) H Urine Glucose Normal mg/dL (Normal) Microbiology Microbiology Date/Time Source Procedure Growth Status 05/29/25 18:16 Blood Blood Culture - Preliminary Resulted Labs and/or images reviewed: Labs reviewed by me, Image(s) reviewed by me Assessment/Plan Assessment/Plan Covering for Dr. Jane Acute metabolic encephalopathy- improving Failure to thrive PARTH likely due to ATN- monitor Cultures negative, continue Rocephin Plan discussed with: Patient Date of Service: Jun 01, 2025 Billing Provider: TYRNOE AQUINO MD Common Visit Codes: [id number] INP/OBS CARE(HIGH) TYRONE AQUINO MD Jun 01, 2025 11:26
[2025-06-01 13:00] VITALS: BP 106/54; PULSE 92; RESP 19; TEMP 97.9; O2SAT 95
[2025-06-01 17:00] VITALS: BP 113/71; PULSE 75; RESP 20; TEMP 98.2; O2SAT 94
[2025-06-01 21:00] VITALS: BP 103/50; PULSE 81; RESP 18; TEMP 98.4; O2SAT 95
[2025-06-02 05:00] VITALS: BP 110/60; PULSE 84; RESP 18; TEMP 98; O2SAT 96
--- NOTE | 2025-06-02 12:25 | DVHPN2 ---
Reviewed: Care Plan, H&P, Labs, Medications, Previous Orders, Radiology Changes from previous H/P or p: No Changes Objective Vitals Vital Signs Date Time Temp Pulse Resp B/P (MAP) Pulse Ox O2 Delivery O2 Flow Rate FiO2 06/02/25 08:05 Nasal Cannula* 2 28 06/02/25 05:00 98.0 84 18 110/60 (77) 96 98.0 Intake/Output Intake and Output 06/02/25 07:00 Intake Total 1650 ml Balance 1650 ml Intake Oral 1650 ml # Voids 14 # Bowel Movements 1 General Appearance: Alert, Cooperative, No acute distress HEENT: Atraumatic Neck: Carotid Bruits [place] Lungs: Clear to auscultation Cardiovascular: Regular rate, Normal S1, Normal S2 Abdomen: Normal bowel sounds, Soft Psych/Mental Status: Mental status NL Medications Current Medications Medications Dose Ordered Sig/Jakob Route Start Time Stop Time Status Last Admin Dose Admin Sodium Chloride 1,000 ml @ 60 mls/hr [id number] IV 05/30/25 07:15 05/31/25 03:39 60 MLS/HR Ondansetron HCl 4 mg Q4HP PRN IV 05/30/25 07:15 Ceftriaxone Sodium 50 ml @ 100 mls/hr DAILY@09 IV 05/30/25 09:00 06/02/25 09:13 100 MLS/HR Lorazepam 1 mg Q4HPRN PRN IV 05/30/25 23:00 06/02/25 09:45 1 MG Laboratory Results Laboratory Tests 05/31/25 11:05 Urinalysis Test 05/30/25 13:15 Urine Color Light-yellow (Yellow) Urine Clarity Clear (Clear) Urine pH 6.5 (5.0-9.0) Urine Specific [place] 1.009 (1.001-1.035) Urine Protein Negative (Negative) Urine Ketones Negative (Negative) Urine Blood Trace /uL (Negative) H Urine Nitrite Negative (Negative) Urine Bilirubin Negative (Negative) Urine Urobilinogen Normal mg/dL (Negative) Urine Leukocyte Esterase 2+ /uL (Negative) Urine RBC 1 /hpf (0 - 4) Urine Microscopic WBC 9 /HPF (0-5) H Urine Squamous Epithelial Cells Few /hpf (<5) Urine Bacteria Few /hpf (None Seen) H Urine Glucose Normal mg/dL (Normal) Microbiology Microbiology Date/Time Source Procedure Growth Status 05/29/25 18:16 Blood Blood Culture - Preliminary Resulted Labs and/or images reviewed: Labs reviewed by me, Image(s) reviewed by me Assessment/Plan Assessment/Plan Covering for Dr. Jane Acute metabolic encephalopathy- improving Failure to thrive PARTH likely due to ATN- monitor Cultures negative, continue Rocephin Blood cultures Growing Gram-positive rods possible contamination, will wait for the final report Plan discussed with: Patient Date of Service: Jun 02, 2025 Billing Provider: TYRONE AQUINO MD Common Visit Codes: [id number] INP/OBS CARE(HIGH) TYRONE AQUINO MD Jun 02, 2025 12:25
[2025-06-02 13:00] VITALS: BP 101/60; PULSE 85; RESP 17; TEMP 98.3; O2SAT 93
[2025-06-02 17:00] VITALS: BP_SYST 123; BP_SYST 141; BP_DIAS 58; BP_DIAS 69; PULSE 56; PULSE 73; RESP 17; RESP 18; TEMP 98.7; O2SAT 93; O2SAT 94
[2025-06-02 21:00] VITALS: BP 115/75; PULSE 88; RESP 19; TEMP 98.2; O2SAT 94
[2025-06-02] MEDS: NICOTINE 14 MG/24HR TOPICAL PATCH TD ONE (21:51)
[2025-06-03 01:00] VITALS: BP 125/56; PULSE 84; RESP 20; TEMP 97.9; O2SAT 97
[2025-06-03 05:00] VITALS: BP 117/70; PULSE 77; RESP 18; TEMP 98.7; O2SAT 95
[2025-06-03 08:53] VITALS: BP 133/81; PULSE 76; RESP 20; TEMP 97.7; O2SAT 94
[2025-06-03 12:47] VITALS: BP 110/79; PULSE 89; RESP 20; TEMP 98.5; O2SAT 93
[2025-06-03 16:44] VITALS: BP 112/68; PULSE 84; RESP 20; TEMP 97.7; O2SAT 96
[2025-06-03] MEDS ORDERED: HALOPERIDOL LACTATE 5 MG/ML INJ VIAL IM PRN (17:00)
--- NOTE | 2025-06-03 17:54 | DVHPN2 ---
Subjective Seen and examined at bedside, awaiting DC placement. Reviewed: Care Plan, H&P, Labs, Medications, Previous Orders, Radiology Changes from previous H/P or p: No Changes Objective Vitals Vital Signs Date Time Temp Pulse Resp B/P (MAP) Pulse Ox O2 Delivery O2 Flow Rate FiO2 06/03/25 16:44 97.7 84 20 112/68 (83) 96 97.7 06/03/25 08:07 Room Air* 0 21 Intake/Output Intake and Output 06/03/25 07:00 Intake Total 3950 ml Balance 3950 ml Intake Oral 2240 ml IV Total 1710 ml # Voids 17 General Appearance: Alert, Cooperative, No acute distress HEENT: Atraumatic Neck: Carotid [place]its [place] Lungs: Clear to auscultation Cardiovascular: Regular rate, Normal S1, Normal S2 Abdomen: Normal bowel sounds, Soft Psych/Mental Status: Mental status NL Medications Current Medications Medications Dose Ordered Sig/Jakob Route Start Time Stop Time Status Last Admin Dose Admin Sodium Chloride 1,000 ml @ 60 mls/hr [id number] IV 05/30/25 07:15 06/03/25 09:16 60 MLS/HR Ondansetron HCl 4 mg Q4HP PRN IV 05/30/25 07:15 Ceftriaxone Sodium 50 ml @ 100 mls/hr DAILY@09 IV 05/30/25 09:00 06/03/25 09:16 100 MLS/HR Lorazepam 1 mg Q4HPRN PRN IV 05/30/25 23:00 06/03/25 17:37 1 MG Haloperidol Lactate 5 mg Q12HP PRN IM 06/03/25 17:00 Laboratory Results Laboratory Tests 05/31/25 11:05 Urinalysis Test 05/30/25 13:15 Urine Color Light-yellow (Yellow) Urine Clarity Clear (Clear) Urine pH 6.5 (5.0-9.0) Urine Specific [place] 1.009 (1.001-1.035) Urine Protein Negative (Negative) Urine Ketones Negative (Negative) Urine Blood Trace /uL (Negative) H Urine Nitrite Negative (Negative) Urine Bilirubin Negative (Negative) Urine Urobilinogen Normal mg/dL (Negative) Urine Leukocyte Esterase 2+ /uL (Negative) Urine RBC 1 /hpf (0 - 4) Urine Microscopic WBC 9 /HPF (0-5) H Urine Squamous Epithelial Cells Few /hpf (<5) Urine Bacteria Few /hpf (None Seen) H Urine Glucose Normal mg/dL (Normal) Microbiology Microbiology Date/Time Source Procedure Growth Status 05/29/25 18:16 Blood Blood Culture - Final Complete Assessment/Plan Assessment/Plan Acute metabolic encephalopathy- improving Failure to thrive PARTH likely due to ATN- Monitor DC Planning Plan discussed with: Patient My Orders Orders - JORGE SANCHEZ MD Procedure Category Date Status Time Haloperidol Lactate PHA 06/03/25 In Process Injection (Haldol) 17:00 Date of Service: Jun 03, 2025 Billing Provider: JORGE SANCHEZ MD Common Visit Codes: [id number] INP/OBS CARE(HIGH) JORGE SANCHEZ MD Jun 03, 2025 17:54
[2025-06-03 21:00] VITALS: BP 106/69; PULSE 82; RESP 19; TEMP 98; O2SAT 94
[2025-06-04 01:00] VITALS: BP 95/54; PULSE 83; RESP 17; TEMP 97.7; O2SAT 98
[2025-06-04 05:00] VITALS: BP 97/57; PULSE 87; RESP 17; TEMP 97.6; O2SAT 94
[2025-06-04 09:00] VITALS: BP 96/61; PULSE 81; RESP 18; TEMP 97.7; O2SAT 96
[2025-06-04 13:00] VITALS: BP 119/75; PULSE 85; RESP 19; TEMP 97.7; O2SAT 96
--- NOTE | 2025-06-04 14:13 | DVHPN2 ---
Subjective Seen and examined at bedside, spoke with caregiver Elena [phone]. Will get MRI Brain. Needs placement Reviewed: Care Plan, H&P, Labs, Medications, Previous Orders, Radiology Changes from previous H/P or p: No Changes Objective Vitals Vital Signs Date Time Temp Pulse Resp B/P (MAP) Pulse Ox O2 Delivery O2 Flow Rate FiO2 06/04/25 09:00 97.7 81 18 96/61 (73) 96 97.7 06/04/25 07:40 Room Air* 0 21 Intake/Output Intake and Output 06/04/25 07:00 Intake Total 3974 ml Balance 3974 ml Intake Oral 2324 ml IV Total 1650 ml # Voids 14 # Bowel Movements 1 General Appearance: Alert, Cooperative, No acute distress HEENT: Atraumatic Neck: Carotid [place]its [place] Lungs: Clear to auscultation Cardiovascular: Regular rate, Normal S1, Normal S2 Abdomen: Normal bowel sounds, Soft Psych/Mental Status: Mental status NL Medications Current Medications Medications Dose Ordered Sig/Jakob Route Start Time Stop Time Status Last Admin Dose Admin Ondansetron HCl 4 mg Q4HP PRN IV 05/30/25 07:15 Ceftriaxone Sodium 50 ml @ 100 mls/hr DAILY@09 IV 05/30/25 09:00 06/04/25 08:37 100 MLS/HR Lorazepam 1 mg Q4HPRN PRN IV 05/30/25 23:00 06/03/25 21:43 1 MG Haloperidol Lactate 5 mg Q12HP PRN IM 06/03/25 17:00 Laboratory Results Laboratory Tests 05/31/25 11:05 Urinalysis Test 05/30/25 13:15 Urine Color Light-yellow (Yellow) Urine Clarity Clear (Clear) Urine pH 6.5 (5.0-9.0) Urine Specific [place] 1.009 (1.001-1.035) Urine Protein Negative (Negative) Urine Ketones Negative (Negative) Urine Blood Trace /uL (Negative) H Urine Nitrite Negative (Negative) Urine Bilirubin Negative (Negative) Urine Urobilinogen Normal mg/dL (Negative) Urine Leukocyte Esterase 2+ /uL (Negative) Urine RBC 1 /hpf (0 - 4) Urine Microscopic WBC 9 /HPF (0-5) H Urine Squamous Epithelial Cells Few /hpf (<5) Urine Bacteria Few /hpf (None Seen) H Urine Glucose Normal mg/dL (Normal) Microbiology Microbiology Date/Time Source Procedure Growth Status 05/29/25 18:16 Blood Blood Culture - Final Complete Assessment/Plan Assessment/Plan Acute metabolic encephalopathy- improving Failure to thrive PARTH likely due to ATN- Monitor DC Planning Plan discussed with: Patient, Other (Elena) My Orders Orders - JORGE SANCHEZ MD Procedure Category Date Status Time Haloperidol Lactate PHA 06/03/25 In Process Injection (Haldol) 17:00 Brain Head Wo Contrast MRI 06/04/25 Verified 14:11 Communication Order ORDERS 06/04/25 Verified 14:11 Date of Service: Jun 04, 2025 Billing Provider: JORGE SANCHEZ MD Common Visit Codes: [id number] INP/OBS CARE(HIGH) JORGE SANCHEZ MD Jun 04, 2025 14:13
--- NOTE | 2025-06-04 15:21 | DVH ---
EXAM: MRI BRAIN HEAD WO CONTRAST HISTORY: ALOC TECHNIQUE: Multiplanar and multisequence MR imaging of the head was performed. COMPARISON: CT HEAD WITHOUT CONTRAST on DOS: 05/29/25 FINDINGS: Generalized cerebral volume loss with concordant prominence of the subarachnoid spaces and ventricles . Minor periventricular T2 hyperintensities in the supratentorial white matter consistent with nonspe cific white matter disease. There is no midline shift or mass effect. The vascular flow-voids are unr emarkable. Diffusion weighted imaging is not indicative of acute or recent infarct. IMPRESSION: 1. No acute or recent infarct. 2. Generalized cerebral volume loss and minor chronic microvascular ischemic change.
[2025-06-04 17:00] VITALS: BP 125/77; PULSE 80; RESP 18; TEMP 97.4; O2SAT 96
[2025-06-04 21:00] VITALS: BP 102/43; PULSE 91; RESP 18; TEMP 98.1; O2SAT 95
[2025-06-05] VITALS (7 sets, daily range): BP systolic 86–116; BP diastolic 51–89; PULSE 86–91; RESP 16–19; TEMP 36.3; O2SAT 94–97
--- NOTE | 2025-06-05 11:43 | DVHDS2 ---
Discharge Summary Date of Admission May 30, 2025 at 07:11 Date of Discharge: Jun 05, 2025 Labs/Diagnostic Data: Laboratory Results Test 05/31/25 11:05 05/30/25 13:15 05/30/25 07:35 05/29/25 18:16 White Blood Count 10.3 10^3/uL (4.4-10.8) Red Blood Count 4.09 10^6/uL (4.0-5.20) Hemoglobin 12.7 g/dL (12.2-16.2) Hematocrit 37.0 % (36.0-46.0) Mean Corpuscular Volume 90.6 fL (80.0-100.0) Mean Corpuscular Hemoglobin 31.0 pg (28.0-32.0) Mean Corpuscular Hemoglobin Concent 34.2 g/dL (32.0-36.0) Red Cell Distribution Width 13.4 % (11.8-14.3) Platelet Count 187 10^3/uL (140-450) Mean Platelet Volume 8.5 fL (6.9-10.8) Neutrophils (%) (Auto) 75.7 % (37.0-80.0) Lymphocytes (%) (Auto) 14.2 % (10.0-50.0) Monocytes (%) (Auto) 8.0 % (0.0-12.0) Eosinophils (%) (Auto) 1.8 % (0.0-7.0) Basophils (%) (Auto) 0.3 % (0.0-2.0) Neutrophils # (Auto) 7.8 10 ^3/uL (1.6-8.6) Lymphocytes # (Auto) 1.5 10 ^3/uL (0.4-5.4) Monocytes # (Auto) 0.8 10 ^3/uL (0-1.3) Eosinophils # (Auto) 0.2 10 ^3/uL (0-0.8) Basophils # (Auto) 0 10 ^3/uL (0-0.2) Nucleated Red Blood Cells 0.1 % Sodium Level 138 mmol/L (136-145) Potassium Level 3.5 mmol/L (3.5-5.1) Chloride Level 100 mmol/L (98-107) Carbon Dioxide Level 32 mmol/L (20-31) Anion Gap 6 (5-15) Blood Urea Nitrogen 16 mg/dL (9-23) Creatinine 0.72 mg/dL (0.550-1.02) Glomerular Filtration Rate Calc 93 mL/min (>90) BUN/Creatinine Ratio 22.2 (10.0-20.0) Serum Glucose 122 mg/dL (74-106) Calcium Level 8.7 mg/dL (8.7-10.4) Total Bilirubin 0.2 mg/dL (0.2-1.0) Aspartate Amino Transferase (AST) 29 U/L (13-40) Alanine Aminotransferase (ALT) 14 U/L (7-40) Alkaline Phosphatase 77 U/L (46-116) Total Protein 5.7 g/dL (5.7-8.2) Albumin 3.3 g/dL (3.2-4.8) Urine Color Light-yellow (Yellow) Urine Clarity Clear (Clear) Urine pH 6.5 (5.0-9.0) Urine Specific [place] 1.009 (1.001-1.035) Urine Protein Negative (Negative) Urine Ketones Negative (Negative) Urine Blood Trace /uL (Negative) Urine Nitrite Negative (Negative) Urine Bilirubin Negative (Negative) Urine Urobilinogen Normal mg/dL (Negative) Urine Leukocyte Esterase 2+ /uL (Negative) Urine RBC 1 /hpf (0 - 4) Urine Microscopic WBC 9 /HPF (0-5) Urine Squamous Epithelial Cells Few /hpf (<5) Urine Bacteria Few /hpf (None Seen) Urine Glucose Normal mg/dL (Normal) Vitamin B12 Level 760 pg/mL (211-911) Thyroid Stimulating Hormone (TSH) 2.12 uIU/mL (0.55-4.78) Lactic Acid Level 1.6 mmol/L (0.4-2.0) Magnesium Level 2.1 mg/dL (1.6-2.6) Ammonia < 10 umol/L (11-32) Salicylates Level < 3.0 mg/dL (-30) Acetaminophen Level < 2.0 UG/ML (10.0-20.0) Plasma/Serum Blood Alcohol < 3.0 mg/dL (<10) Other Laboratory Tests 05/31/25 11:05 Brief Hx & Hospital Course: Patient is a 64 year-old F admitted for altered mental status found at home. 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 Patients mental status and resolved to baseline. I advised the patient to go to a SNF or a boarding care but patient adamantly is refusing wishes to go back home with caregivers. I spoke with the caregiver who will be at home to help the patient. Condition at Discharge: Poor Final Diagnosis/Problems List Acute metabolic encephalopathy- improving Failure to thrive PARTH likely due to ATN- Monitor Discharge Disposition: Home with Health Services Discharge Instruct/Medications Diet: Cardiac 2g Na,low cholest Activity: Light activity Scheduled Escitalopram Oxalate (Escitalopram Oxalate), 1 TAB PO DAILY, (Reported) Mirabe[employer]on Base (Myrbetriq), 1 TAB PO DAILY, (Reported) Scheduled PRN Gabapentin (Gabapentin), 1 CAP PO Q4HP PRN Discharge Statement: "Patient was advised to return to the ER or call 911 if any headaches, dizziness, shortness of breath, chest pain, abdominal pain, bleeding, fevers, or worsening of medical condition. Patient was counseled about treatment plan, medications, possible side effects, patientverbalized understanding. All questions were answered to the best of my ability. This discharge took greater then 30 minutes in planning, reviewing documentation, counseling the patient, and discussing with other team members." ASSESSMENT ASSESSMENT Assessment Acute metabolic encephalopathy- improving Failure to thrive PARTH likely due to ATN- Monitor Date of Service: Jun 05, 2025 Billing Provider: JORGE SANCHEZ MD Common Visit Codes: [id number] DISCH DAY >30min JORGE SANCHEZ MD Jun 05, 2025 11:43
[2025-06-06 01:00] VITALS: BP 107/73; PULSE 85; RESP 18; TEMP 97.6; O2SAT 95
[2025-06-06 05:00] VITALS: BP 91/58; PULSE 76; RESP 17; TEMP 97.6; O2SAT 95
[2025-06-06 09:00] VITALS: BP 89/57; PULSE 87; RESP 18; TEMP 97.6; O2SAT 96
[2025-06-06 13:00] VITALS: BP 89/61; PULSE 96; RESP 19; TEMP 97.7; O2SAT 97
--- NOTE | 2025-06-06 14:16 | DVHPN2 ---
Subjective Seen and examined at bedside, FOR SNF PLACEMENT. Reviewed: Care Plan, H&P, Labs, Medications, Previous Orders, Radiology Changes from previous H/P or p: No Changes Objective Vitals Vital Signs Date Time Temp Pulse Resp B/P (MAP) Pulse Ox O2 Delivery O2 Flow Rate FiO2 06/06/25 13:00 97.7 96 19 89/61 (70) 97 97.7 06/06/25 08:00 Room Air* 0 21 Intake/Output Intake and Output 06/06/25 07:00 Intake Total 2850 ml Balance 2850 ml Intake Oral 2800 ml IV Total 50 ml # Voids 9 # Bowel Movements 3 General Appearance: Alert, Cooperative, No acute distress HEENT: Atraumatic Neck: Carotid Bruits [place] Lungs: Clear to auscultation Cardiovascular: Regular rate, Normal S1, Normal S2 Abdomen: Normal bowel sounds, Soft Psych/Mental Status: Mental status NL Medications Current Medications Medications Dose Ordered Sig/Jakob Route Start Time Stop Time Status Last Admin Dose Admin Ondansetron HCl 4 mg Q4HP PRN IV 05/30/25 07:15 Ceftriaxone Sodium 50 ml @ 100 mls/hr DAILY@09 IV 05/30/25 09:00 06/06/25 08:01 100 MLS/HR Lorazepam 1 mg Q4HPRN PRN IV 05/30/25 23:00 06/06/25 11:11 1 MG Haloperidol Lactate 5 mg Q12HP PRN IM 06/03/25 17:00 Laboratory Results Laboratory Tests 05/31/25 11:05 Urinalysis Test 05/30/25 13:15 Urine Color Light-yellow (Yellow) Urine Clarity Clear (Clear) Urine pH 6.5 (5.0-9.0) Urine Specific [place] 1.009 (1.001-1.035) Urine Protein Negative (Negative) Urine Ketones Negative (Negative) Urine Blood Trace /uL (Negative) H Urine Nitrite Negative (Negative) Urine Bilirubin Negative (Negative) Urine Urobilinogen Normal mg/dL (Negative) Urine Leukocyte Esterase 2+ /uL (Negative) Urine RBC 1 /hpf (0 - 4) Urine Microscopic WBC 9 /HPF (0-5) H Urine Squamous Epithelial Cells Few /hpf (<5) Urine Bacteria Few /hpf (None Seen) H Urine Glucose Normal mg/dL (Normal) Microbiology Microbiology Date/Time Source Procedure Growth Status 05/29/25 18:16 Blood Blood Culture - Final Complete Assessment/Plan Assessment/Plan Acute metabolic encephalopathy- improving Failure to thrive PARTH likely due to ATN- Monitor DC Planning Plan discussed with: Other My Orders Orders - JORGE SANCHEZ MD Procedure Category Date Status Time * [employer] Office CONS 06/06/25 Transmitted Consult Date of Service: Jun 06, 2025 Billing Provider: JORGE SANCHEZ MD Common Visit Codes: [id number] INP/OBS CARE(MOD) JORGE SANCHEZ MD Jun 06, 2025 14:16
[2025-06-06 17:00] VITALS: BP 106/66; PULSE 96; RESP 18; TEMP 97.8; O2SAT 96
[2025-06-06 21:00] VITALS: BP 99/63; PULSE 85; RESP 17; TEMP 98; O2SAT 95
[2025-06-07 05:00] VITALS: BP 95/62; PULSE 86; RESP 18; TEMP 97.6; O2SAT 95
[2025-06-07 08:00] VITALS: PULSE 89; RESP 18; O2SAT 98
[2025-06-07 08:41] VITALS: BP 118/71; PULSE 89; RESP 20; TEMP 99; O2SAT 98
[2025-06-07 12:48] VITALS: BP 93/63; PULSE 92; RESP 20; TEMP 97.9; O2SAT 93
--- NOTE | 2025-06-07 15:03 | DVHPN2 ---
Subjective Seen and examined at bedside, for DC to SNF today. Reviewed: Care Plan, H&P, Labs, Medications, Previous Orders, Radiology Changes from previous H/P or p: No Changes Objective Vitals Vital Signs Date Time Temp Pulse Resp B/P (MAP) Pulse Ox O2 Delivery O2 Flow Rate FiO2 06/07/25 12:48 97.9 92 20 93/63 (73) 93 97.9 06/07/25 08:00 Room Air* 0 21 Intake/Output Intake and Output 06/07/25 06:59 Intake Total 2100 ml Balance 2100 ml Intake Oral 2050 ml IV Total 50 ml # Voids 10 # Bowel Movements 1 General Appearance: Alert, Cooperative, No acute distress HEENT: Atraumatic Neck: Carotid Bruits [place] Lungs: Clear to auscultation Cardiovascular: Regular rate, Normal S1, Normal S2 Abdomen: Normal bowel sounds, Soft Psych/Mental Status: Mental status NL Medications Current Medications Medications Dose Ordered Sig/Jakob Route Start Time Stop Time Status Last Admin Dose Admin Ondansetron HCl 4 mg Q4HP PRN IV 05/30/25 07:15 Ceftriaxone Sodium 50 ml @ 100 mls/hr DAILY@09 IV 05/30/25 09:00 06/07/25 10:33 100 MLS/HR Lorazepam 1 mg Q4HPRN PRN IV 05/30/25 23:00 06/07/25 10:33 1 MG Haloperidol Lactate 5 mg Q12HP PRN IM 06/03/25 17:00 Laboratory Results Laboratory Tests 05/31/25 11:05 Urinalysis Test 05/30/25 13:15 Urine Color Light-yellow (Yellow) Urine Clarity Clear (Clear) Urine pH 6.5 (5.0-9.0) Urine Specific [place] 1.009 (1.001-1.035) Urine Protein Negative (Negative) Urine Ketones Negative (Negative) Urine Blood Trace /uL (Negative) H Urine Nitrite Negative (Negative) Urine Bilirubin Negative (Negative) Urine Urobilinogen Normal mg/dL (Negative) Urine Leukocyte Esterase 2+ /uL (Negative) Urine RBC 1 /hpf (0 - 4) Urine Microscopic WBC 9 /HPF (0-5) H Urine Squamous Epithelial Cells Few /hpf (<5) Urine Bacteria Few /hpf (None Seen) H Urine Glucose Normal mg/dL (Normal) Microbiology Microbiology Date/Time Source Procedure Growth Status 05/29/25 18:16 Blood Blood Culture - Final Complete Assessment/Plan Assessment/Plan Acute metabolic encephalopathy- improving Failure to thrive PARTH likely due to ATN- Monitor DC Planning Plan discussed with: Patient My Orders Orders - JORGE SANCHEZ MD Procedure Category Date Status Time Discharge DISCHARGE 06/07/25 Transmitted 14:26 Date of Service: Jun 07, 2025 Billing Provider: JORGE SANCHEZ MD Common Visit Codes: [id number] INP/OBS CARE(LOW) JORGE SANCHEZ MD Jun 07, 2025 15:03
== END 2025-06-07 16:10 | DRG 70 ==
LOC: EDBD 16:42 → ER 16:42 → OVERFLOW 05-30 07:11 → WEST WING 05-30 21:26
PROVIDERS: ADMIT Internal Medicine; ATTEND Internal Medicine
DX: G93.41 Metabolic encephalopathy (principal); N17.0 Acute kidney failure with tubular necrosis; E87.6 Hypokalemia; R62.7 Adult failure to thrive; D72.829 Elevated white blood cell count, unspecified; F31.9 Bipolar disorder, unspecified; F20.9 Schizophrenia, unspecified; F41.9 Anxiety disorder, unspecified; F15.90 Other stimulant use, unspecified, uncomplicated; I95.9 Hypotension, unspecified; Z88.0 Allergy status to penicillin; Z79.899 Other long term (current) drug therapy; Z98.51 Tubal ligation status; Z68.24 Body mass index [BMI] 24.0-24.9, adult
CPT/HCPCS: 36415; 70450; 70551; 71045; 73502; 80053; 80320; 80329; 81001; 82140; 82306; 82607; 83605; 83735; 84443; 85025; 87040; 93005; 96361; 96374; 97110; 97116; 97163; 97530; 99291; G0378